=== PATIENT | female | born 1960 | race African-American/Black ===

== ENCOUNTER 2017-03-21 22:04 | Emergency (ER) | payer BC ==
[~2017-03-21] VITALS: Ht 149.9 cm; Wt 104.0 kg
[2017-03-21] MEDS ORDERED: SODIUM CHLORIDE 0.9% 1,000 ML IV ONE (23:43)
[2017-03-21] MEDS ORDERED: KETOROLAC 30MG/ML VIAL IV STA (23:43)
[2017-03-21] MEDS ORDERED: ASPIRIN 81MG TABLET PO ONE (23:45)
[2017-03-22 00:07] VITALS: BP 145/91
[2017-03-22 00:13] LABS: CLARITY URINE CLEAR (CLEAR); COLOR URINE YELLOW (YELLOW); GLUCOSE URINE NEGATIVE (NEGATIVE); KETONES URINE NEGATIVE (NEGATIVE); LEUKOCYTE ESTERASE URINE NEGATIVE (NEGATIVE); NITRITE URINE NEGATIVE (NEGATIVE); OCCULT BLOOD URINE NEGATIVE (NEGATIVE); PROTEIN URINE NEGATIVE (NEGATIVE); SPECIFIC GRAVITY URINE 1.014 (1.005-1.030)
[2017-03-22 00:32] LABS: BASOPHILS % 0.3 % (0.0-2.0); EOSINOPHILS % 5.6 % (0.0-5.0); HEMATOCRIT. 41.1 % (36.0-48.0); HEMOGLOBIN. 13.9 g/dL (12.0-16.0); LYMPHOCYTES % 53.4 % (20.0-50.0); MEAN CORPUSCULAR HEMOGLOBIN 29.4 pg (28.0-32.0); MEAN CORPUSCULAR VOLUME 87.3 fL (81.0-99.0); MEAN PLATELET VOLUME 7.8 fl (7.4-10.4); MONOCYTES % 6.9 % (2.0-8.0); NEUTROPHILS % 33.8 % (40.0-76.0); PLATELET 270 x1000/uL (130-400); RED BLOOD CELL COUNT 4.72 mill/uL (4.2-5.4); RED CELL DISTRIBUTION WIDTH 14.3 % (11.6-14.6)
[2017-03-22 00:41] LABS: *AMPHETAMINES SCREEN URINE NEGATIVE (NEGATIVE); *BARBITURATES SCREEN URINE NEGATIVE (NEGATIVE); *BENZODIAZEPINES SCREEN URINE NEGATIVE (NEGATIVE); *COCAINE SCREEN URINE NEGATIVE (NEGATIVE); CANNABINOID URINE SCREEN NEGATIVE (NEGATIVE); METHADONE URINE SCREEN NEGATIVE (NEGATIVE); OPIATES URINE SCREEN NEGATIVE (NEGATIVE); PHENCYCLIDINE URINE SCREEN NEGATIVE (NEGATIVE)
[2017-03-22 00:43] LABS: CARBON DIOXIDE 30 mEq/L (21-32); CHLORIDE 104 mEq/L (98-107); ETHANOL BLOOD < 10 mg/dL; TROPONIN I < 0.02 ng/mL (0.00-0.04)
== END 2017-03-22 01:46 | disposition home or self-care (01) ==
LOC: ER 22:04
DX: R06.00 Dyspnea, unspecified (principal); R20.2 Paresthesia of skin; Z90.710 Acquired absence of both cervix and uterus
CPT/HCPCS: 36415; 71010; 80053; 80305; 81003; 83690; 83880; 84484; 85025; 85379; 93005; 96361; 96374; 99285; G0482; J1885; J7030; Z7610

== ENCOUNTER 2017-06-25 11:43 | Emergency (ER) | payer BC ==
[~2017-06-25] VITALS: Ht 149.9 cm; Wt 108.0 kg
[2017-06-25] MEDS ORDERED: LIDOCAINE HCL 1% 20ML VIAL (Pyxis) INJ MC ONE (16:30)
[2017-06-25] MEDS ORDERED: BACITRACIN ZINC OINT UDPKT TOP ONE (16:30)
[2017-06-25] MEDS ORDERED: IBUPROFEN 600MG TABLET PO ONE (16:30)
[2017-06-25] MEDS ORDERED: LIDOCAINE HCL 1% 20ML VIAL (Pyxis) INJ MC NR (18:45)
[2017-06-25 20:15] VITALS: BP 147/84
== END 2017-06-25 20:15 | disposition home or self-care (01) ==
LOC: ER 11:43
DX: S61.012A Laceration without foreign body of left thumb without damage to nail, initial encounter (principal); W25.XXXA Contact with sharp glass, initial encounter; Y93.89 Activity, other specified; Y92.89 Other specified places as the place of occurrence of the external cause; Y99.8 Other external cause status
CPT/HCPCS: 12001; 73140; 99284; J3490; X7700; Z7610